=== PATIENT | male | born 1945 | race Caucasian/White ===

== ENCOUNTER 2020-03-21 01:43 | Emergency (ER) | payer SELFPAY ==
[~2020-03-21] VITALS: Ht 185.4 cm; Wt 84.6 kg
--- NOTE | 2020-03-21 01:53 | NUR ---
see code sheet
--- NOTE | 2020-03-21 02:07 | NUR ---
patient lost pulses, CPR initiated again.
[2020-03-21] MEDS ORDERED: OXYB5TAB10 PO (02:25)
[2020-03-21] MEDS ORDERED: AMIO200T42 PO (02:25)
[2020-03-21] MEDS ORDERED: METO5TAB5 PO (02:25)
[2020-03-21] MEDS ORDERED: EPLE25TA4 PO (02:25)
[2020-03-21] MEDS ORDERED: CARV25TA12 PO (02:25)
[2020-03-21] MEDS ORDERED: TAMS-11 PO (02:25)
[2020-03-21] MEDS ORDERED: SEMA14TA PO (02:25)
[2020-03-21] MEDS ORDERED: TORS20TA2 PO (02:25)
[2020-03-21] MEDS ORDERED: MEXI150C PO (02:25)
[2020-03-21] MEDS ORDERED: WARF2.5T32 PO (02:25)
[2020-03-21] MEDS ORDERED: DULO30CA2 PO (02:25)
[2020-03-21] MEDS ORDERED: VALS40TA2 PO (02:25)
[2020-03-21 02:33] LABS: INTERNATIONAL NORMALIZED RATIO 1.7 (0.93-1.1); PROTHROMBIN TIME 18.1 Seconds (9.6-11.5)
[2020-03-21 02:34] LABS: ANION GAP 20 mmol/L (5-15); CHLORIDE 92 mmol/L (98-107)
[2020-03-21 02:35] LABS: MEAN CORPUSCULAR HEMOGLOBIN 23.5 pg (27.5-34.5); MEAN CORPUSCULAR VOLUME 79.2 fL (81-97); RED CELL DISTRIBUTION WIDTH 23.6 % (9.4-14.8)
[2020-03-21 02:39] LABS: ALANINE AMINOTRANSFERASE 87 U/L (12-78); ALKALINE PHOSPHATASE 237 U/L (45-117); BILIRUBIN,TOTAL 0.9 mg/dL (0.2-1.0); CREATININE 3.16 mg/dL (0.7-1.3); TOTAL PROTEIN 7.1 g/dL (6.4-8.2)
[2020-03-21 02:40] LABS: TROPONIN I 0.392 ng/mL (0.000-0.045)
[2020-03-21] MEDS ORDERED: EPINEPHRINE 1 MG/ML, 1ML ONE (02:44)
[2020-03-21] MEDS ORDERED: CALCIUM CHLORIDE 10%, 10ML SYR ONE (02:44)
[2020-03-21] MEDS ORDERED: CODE BLUE RESPONSE XX ONE (02:44)
[2020-03-21] MEDS ORDERED: AMIODARONE 50 MG/ML, 3ML ONE ×2 (02:44)
[2020-03-21] MEDS ORDERED: EPINEPHRINE SYRINGE 0.1 MG/ML, 10ML ONE (02:44)
[2020-03-21] MEDS ORDERED: DEXTROSE 5%, 250ML ONE (02:44)
[2020-03-21] MEDS ORDERED: SODIUM BICARB 8.4%, 50ML SYRINGE ONE (02:44)
[2020-03-21] MEDS ORDERED: SODIUM CHLORIDE 0.9%, 250ML ONE (02:44)
[2020-03-21] MEDS ORDERED: FILTER 0.22 MICRON ONE (02:46)
--- NOTE | 2020-03-21 02:50 | NUR ---
ELLY OLIVERA WITH [facility] OFFICE WAS CALLED AND INFO GIVEN. STATES NOT WILLING TO SIGN CERTIFICATE DUE TO UNKNOWN CIRCUMSTANCES. MEDICAL EXAMINERS WILL COME TO ED.
--- NOTE | 2020-03-21 02:51 | NUR ---
PER IS ON THE WAY AND HE HAS DISCUSSED EFFORTS MADE AND OUTCOME OF PT.
--- NOTE | 2020-03-21 03:03 | NUR ---
KATHY DIAMOND CALLED [employer]. CASE #[id number]. KATHY NAQVI WITH [facility] ACCEPTS REFERRAL.
--- NOTE | 2020-03-21 03:05 | NUR ---
PLEASE REFER TO CODE SHEET FOR MEDS AND TIMES
[2020-03-21 03:11] LABS: MD YES; MEAN CORPUSCULAR HGB CONC 29.7 g/dL (33.2-36.2); MEAN PLATELET VOLUME 11.2 fL (7.4-10.4); PLATELET COUNT 166 x10^3/uL (130-400)
[2020-03-21 03:21] LABS: ANISOCYTOSIS 1+; BAND#(MANUAL) 3.71 x10^3/uL; BANDS%(MANUAL) 17 % (0-7); LYMPH#(MANUAL) 8.72 x10^3/uL (1-3.4); LYMPHS% (MANUAL) 40 % (22-44); MONOS#(MANUAL) 0.87 x10^3/uL (0.3-2.7); MONOS% (MANUAL) 4 % (2-9); SEGS% (MANUAL) 39 % (42-75)
--- NOTE | 2020-03-21 03:21 | NUR ---
NOW AT BEDSIDE. POC DISCUSSED. DENIES CURRENT NEEDS. [facility] [employer] [facility] HAS ARRIVED AT THIS TIME.
[2020-03-21 03:22] LABS: <PLATELET ESTIMATE> ADEQUATE; LARGE PLATELETS 1+; OVALOCYTES 1+
--- NOTE | 2020-03-21 04:31 | NUR ---
PT PLACED IN BODY BAGX2. TAGS PLACED ON LEFT GREAT TOE AND OUTSIDE OF BODYBAG. ATTEMPTED TO OBTAIN MORGUE HUA FROM HOUSE SUP HOWEVER HOUSE SUP IN BED MEETING.
--- NOTE | 2020-03-21 04:32 | NUR ---
PTS PARTIALLY FILLED OUT MORTUARY SELECTION. SHE WILL CALL BACK LATER THIS MORNING WITH THE NAME OF HER PREFERRED MORTUARY.
== END 2020-03-21 04:34 | disposition expired ==
LOC: ED 02:37
DX: I25.2 Old myocardial infarction (principal); I13.0 Hypertensive heart and chronic kidney disease with heart failure and stage 1 through stage 4 chronic kidney disease, or unspecified chronic kidney disease; N18.9 Chronic kidney disease, unspecified; E11.9 Type 2 diabetes mellitus without complications; I45.10 Unspecified right bundle-branch block; E87.2 Acidosis; E87.6 Hypokalemia
CPT/HCPCS: 31500; 36415; 80053; 82962; 83605; 83880; 84484; 85025; 85610; 85730; 87040; 92950; 93005; 99291; J0171; J0282; J7050; J7060